=== PATIENT | female | born 1970 | race Caucasian/White ===

== ENCOUNTER 2017-04-07 07:19 | Emergency (ER) | payer BC ==
[2017-04-07 07:31] VITALS: BP 156/82
--- NOTE | 2017-04-07 07:47 | UC ---
Rectal Pain HPI - HPI Summary HPI Summary: C/O possible thrombosed hemorrhoid with hard hemorrhoid, more painful since yesterday. - History Of Current Complaint Chief Complaint: [facility] Stated Complaint: personal Time Seen by Provider: 04/07/17 07:38 Hx Obtained From: Patient ?: No Onset/Duration: Gradual Onset - gradual onset, Lasting Days - 4, Worse Since - Yesterday with hard nodule in the hemorroids. Severity Initially: Mild Severity Currently: Severe Location Of Pain: Anal Character: Dull Aggravating Factor(s): Bowel Movement, Exertion Alleviating Factor(s): Sitz Bath Associated Signs And Symptoms: Positive: External Hemorrhoid Related History: Hemorrhoids - Allergies/Home Medications Allergies/Adverse Reactions: Allergies Allergy/AdvReac Type Severity Reaction Status Date / Time No Known Allergies Allergy Verified 04/07/17 07:24 Home Medications: Home Medications Cholecalciferol [Vitamin D] 2,000 unit PO DAILY 04/07/17 [History Confirmed 09/22] PMH/Surg Hx/FS Hx/Imm Hx Previously Healthy: Yes - Surgical History Surgical History: Yes Surgery Procedure, Year, and Place: HYSTERECTOMY - Family History Known Family History: Positive: Hypertension, Diabetes Negative: Cardiac Disease - Social History Occupation: Employed Full-time Lives: With Family Alcohol Use: None Substance Use Type: None Smoking Status (MU): Never Smoked Tobacco Have You Smoked in the Last Year: No - Immunization History Most Recent Influenza Vaccination: 2015 Review of Systems All Other Systems Reviewed And Are Negative: Yes Physical Exam Triage Information Reviewed: Yes Appearance: Well-Appearing, Well-Nourished, Pain Distress - mild Vital Signs: Initial Vital Signs Temp 98 F 04/07/17 07:25 Pulse 83 04/07/17 07:25 Resp 16 04/07/17 07:25 BP 156/82 04/07/17 07:25 Pulse Ox 100 04/07/17 07:25 Vital Signs Reviewed: Yes Eyes: Positive: Conjunctiva Clear Neck exam: Normal Respiratory Exam: Normal Cardiovascular Exam: Normal Abdominal Exam: Normal Abdomen Description: Positive: Other: - Thrombosed external hemorrhoid Bowel Sounds: Positive: Present Neurological Exam: Normal Psychological Exam: Normal Skin Exam: Normal Procedures - Incision and Drainage Site: External hemorrhoid Anesthesia: Lidocaine - 1% with epi 6 cc. Instrument(s): Scalpel - 11 blade, Other - scissors to cut skin and evacuate clot Rectal Pain Course/Dx - Differential Dx/Diagnosis Differential Diagnosis/HQI/PQRI: Hemorrhoid(s), Perirectal Abscess, Pilonial Cyst Provider Diagnoses: Thrombosed external hemorrhoid. S/P I+D Discharge - Discharge Plan Condition: Stable Disposition: HOME Prescriptions: Hydrocortisone SUPP* [Anusol HC Supp*] 25 mg UT BID #12 supp Patient Education Materials: Thrombosed Hemorrhoid (ED) Additional Instructions: I recommend psyllium fiber on a daily basis to help prevent issues in the future. Mix 1/2 to 1 tsp fiber in 4 oz of water and slug it right down. Then drink an extra 8 oz of water.
[2017-04-07] MEDS ORDERED: Lidocaine 2% W/EPI 1:100,000* 20 ML MDV ONE (07:48)
== END 2017-04-07 08:20 | disposition home or self-care (01) ==
LOC: UCCORT 07:19
DX: K64.5 Perianal venous thrombosis (principal)
CPT/HCPCS: 46083; 99202; G0463